=== PATIENT | female | born 1995 | race Caucasian/White ===

== ENCOUNTER 2017-06-14 19:06 | Emergency (ER) | payer MEDICAID ==
[~2017-06-14] VITALS: Ht 162.6 cm; Wt 63.5 kg
[~2017-06-14 19:06] MED LIST: ACETAMINOPHEN500 M3 PO; EPI-PEN1 MG/M1 MR; GEODON40 MG PO; QUETIAPINE FUM100 MG PO; RISPERDAL 0.50.5 MG NG; SERTRALINE25 MG PO; ZOLOFT 50MG TAB50 MG PO; Zofran4 MG PO
[2017-06-14 19:44] LABS: URINE BILIRUBIN - DIPSTICK NEGATIVE (NEG); URINE BLOOD 3+ (NEG)
[2017-06-14 19:55] LABS: URINE SQUAMOUS CELLS OCC #/hpf (0-5)
[2017-06-14 20:22] LABS: HEMOGLOBIN 13.3 g/dL (12.2-16.2); LYMPH # 2.5 K/mm3 (0.7-4.5); LYMPH % 27.5 % (10-50.0)
[2017-06-14 20:36] LABS: BUN 15 mg/dL (7-18); GFR (ESTIMATED) 104 ML/MIN (59-)
--- NOTE | 2017-06-14 22:13 | Emergency Room Report ---
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 Y Clinical Suspician of Infection? N Mental Status: 1 - Regular (Normal Baseline) Sepsis Risk:Possible Sepsis Risk Have you (or family members/close friends) recently traveled outside the [place]? N If Yes, where/when: Have you had exposure to infectious disease within the past month? N TB? Other? Specify: Source patient, RN notes reviewed, family, old records Exam Limitations no limitations Comment pt with fever with vomiting and episode of incont but no other c/o this has been occuring today Cardiac Chest Pain Chest pain indicative of cardiac No Timing/Duration this evening Severity moderate ALLERGIES Coded Allergies: Penicillins (05/03/17) codeine (06/14/17) fish oil (05/03/17) Home Medications Reported Medications Acetaminophen (Acetaminophen Extra Strength) 500 MG PO Q6HP PRN PAIN/FEVER Epinephrine (Epipen 2-Shahab) 1 MG MR PRN PRN ALLERGY Ondansetron (Zofran Odt) 4 MG PO Q6HP PRN N/V Sertraline Hcl (Zoloft 50MG) 25 MG PO QHS ZIPRASIDONE HCL (Geodon) 40 MG PO BID History Medical History General CAD? No Angina: No [place]: No Hypertension? No Hyperlipidemia? No CHF? No DVT? No PE? No COPD? No Asthma? No Anemia? No GERD? Yes Gastric ulcers? No GI Bleed? No Hernia? No Thyroid Problems? No Hypothyroidism? No CVA? No Seizures? No Diabetes? No Renal Insuffiency? No End Stage Renal Disease? No UTI? Yes Stones? No BPH? No GB Disease: No Nephritic Syndrome? No Asplenia? No Hepatitis? No Sickle Cell Disease? No Arthritis? No Migraines? No Cataracts? No Glaucoma? No MRSA? No HIV? No TB? No Anxiety? Yes Depression? Yes Cancer? No More? Yes Additional hx: PREVIOUS METH USER Immunization Hx DT/Tetanus Unknown Surgical Hx Previous Surgery?Y APPY RIGHT SHOULDER SHOT BLASTER Hx LMP 2 Months Ago Social History Smoking Hx Smoker: Current Every Day Smoker Tobacco: Yes Type Cigarettes Alcohol Alcohol: No Drugs none Review of Systems All Other Systems Reviewed and Negative Constitutional denies fever Eyes denies drainage ENT denies: ear pain, epistaxis, throat pain. Respiratory denies cough, denies shortness of breath, denies wheezing Cardiovascular denies chest pain, denies palpitations, denies syncope Gastrointestinal see HPI, denies abdominal pain, denies diarrhea, nausea, vomiting Genitourinary denies: dysuria, frequency, hesitancy, hematuria. Musculoskeletal denies back pain, denies joint pain, denies joint swelling, denies neck pain Skin denies rash Psychiatric/Neurological denies headache, denies seizure Physical Exam Vital Signs Vital Signs Date Time Temp Pulse Resp B/P Pulse O2 O2 Flow FiO2 Ox Delivery Rate 06/14 1908 98.6 94 20 128/75 96 - WBC >12,000 or <4,000 or 10% bands? 2 or more SIRS Criteria Met? B/P:128/75 MAP:92 Creatinine >2.0? UA output<0.5ml/kg/hr for 2 hrs? Platelet count >100,000? Lactate >2.0mmol/1? INR >1.2 or PTT > than 60 sec? Evidence of Organ Dysfunction? Provider documented clinical suspician of infection? N Sepsis Criteria Count: 2 Sepsis Risk: Possible Sepsis Risk General Appearance no apparent distress Eye Exam - bilateral eye PERRL, bilateral eye EOMI Ear, Nose, Throat normal ENT inspection Neck supple Respiratory Status No: respiratory distress. Lung Sounds bilateral: lungs clear. 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 No Results/Orders Laboratory Tests 06/14/17 2000: Lactic Acid 1.1 06/14/17 2000: Sodium 141, Potassium 3.7, Chloride 105, Carbon Dioxide 26, BUN 15, Creatinine 0.7, Estimated Creat Clear 125, Estimated GFR (MDRD) 104, Glucose 97, Calcium 8.9, Total Bilirubin 0.2, AST 14 L, ALT 19, Alkaline Phosphatase 59, Total Protein 8.2, Albumin 4.1, Globulin 4.1 H, Albumin/Globulin Ratio 1.0 L, Beta HCG, Quant < 1, WBC 9.0, RBC 4.79, Hgb 13.3, Hct 40.7, MCV 85.1, RDW 14.4, Plt Count 378, MPV 7.0 L, Gran % 65.8, Gran # 5.9, Lymphocytes % 27.5, Monocytes % 5.5, Eosinophils % 0.8, Basophils % 0.3, Lymphocytes # 2.5, Monocytes # 0.5, Eosinophils # 0.1, Basophils # 0.0, PUBS MCHC 32.7, MCH 27.9 06/14/171919: Urine Color YELLOW, Urine Appearance SL CLOUDY, Urine pH 6.0, Ur Specific Addison >= 1.030, Urine Protein TRACE H, Urine Ketones NEGATIVE, Urine Blood 3+ H, Urine Nitrate NEGATIVE, Urine Bilirubin NEGATIVE, Urine Urobilinogen 0.2, Ur Leukocyte Esterase NEGATIVE, Urine RBC 10-20, Urine WBC NONE, Ur Squamous Epith Cells OCC, Urine Bacteria 1+, Urine Glucose NEGATIVE Current Medication Orders Sig/Carly Start time Last Medication Dose Route Stop Time Status Admin Sodium Chloride 1,000 ML .STK-MED ONE 06/14 1947 DC IV Ondansetron HCl 4 MG 06/14 1930 UNi 06/14 IV 1958 Sodium Chloride 10 ML PRN PRN 06/14 1930 AC IV 06/15 1922 Sodium Chloride 1,000 ML .Q1H1M 06/14 1930 DC 06/14 IV 06/14 Sodium Chloride 10 ML PRN PRN 06/14 1930 AC IV 06/15 1922 Orders Procedure Date/time Status IV SALINE LOCK 06/14 1923 Active CULTURE, BLOOD 06/14 1923 Active URINALYSIS/COMPLETE 06/14 1923 Complete LACTIC ACID 06/14 1923 Complete CBC WITH AUTO DIFF 06/14 1923 Complete CHEM 12 PROFILE 06/14 1923 Complete BETA-HCG, QUANT 06/14 1923 Complete Departure Departure Time of Disposition 2212 Disposition DC Home or Self Care(routine) Clinical Impression Primary Impression: Acute viral syndrome Condition STABLE Referrals DEVORAH VAUGHN (Family) Patient Instructions DI for Vomiting -- Adult Additional Instructions see pcp and fluids as tolerated Discharge Counseling Counseled pt/family regarding diagnosis, test results, follow up needs ED Critical Care Critical Care No at [id number]
[2017-06-14 22:29] VITALS: BP 115/90
== END 2017-06-14 22:32 | disposition home or self-care (01) ==
LOC: ER 19:06
PROVIDERS: Emergency Medicine
DX: B34.9 Viral infection, unspecified (principal); K21.9 Gastro-esophageal reflux disease without esophagitis; Z72.0 Tobacco use; F41.8 Other specified anxiety disorders
CPT/HCPCS: J2405

== ENCOUNTER 2017-07-16 11:58 | Emergency (ER) | payer MEDICAID ==
[~2017-07-16] VITALS: Ht 162.6 cm; Wt 66.7 kg
--- NOTE | 2017-07-16 12:35 | Emergency Room Report ---
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 N Clinical Suspician of Infection? N Mental Status: 1 - Regular (Normal Baseline) Sepsis Risk:Low Sepsis Risk Have you (or family members/close friends) recently traveled outside the [place]? N If Yes, where/when: Have you had exposure to infectious disease within the past month? TB? Other? Specify: Comment The patient is brought in by ambulance. She fell and injured her RIGHT foot and ankle. She complains of lateral malleolus area pain and pain across the dorsum of her mid foot. No other injuries. She took Tylenol prior to arrival. ALLERGIES Coded Allergies: Penicillins (07/16/17) codeine (07/16/17) fish oil (07/16/17) Home Medications Reported Medications Acetaminophen (Acetaminophen Extra Strength) 500 MG PO Q6HP PRN PAIN/FEVER Epinephrine (Epipen 2-Shahab) 1 MG MR PRN PRN ALLERGY Ondansetron (Zofran Odt) 4 MG PO Q6HP PRN N/V Sertraline Hcl (Zoloft 50MG) 25 MG PO QHS ZIPRASIDONE HCL (Geodon) 40 MG PO BID History Medical History General CAD? No Angina: No [place]: No Hypertension? No Hyperlipidemia? No CHF? No DVT? No PE? No COPD? No Asthma? No Anemia? No GERD? Yes Gastric ulcers? No GI Bleed? No Hernia? No Thyroid Problems? No Hypothyroidism? No CVA? No Seizures? No Diabetes? No Renal Insuffiency? No End Stage Renal Disease? No UTI? Yes Stones? No BPH? No GB Disease: No Nephritic Syndrome? No Asplenia? No Hepatitis? No Sickle Cell Disease? No Arthritis? No Migraines? No Cataracts? No Glaucoma? No MRSA? No HIV? No TB? No Anxiety? Yes Depression? Yes Cancer? No More? 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 Cardiovascular regular rate/rhythm, normal peripheral pulses Extremities tenderness across the dorsum of the mid foot and around the lateral malleolus of her RIGHT foot and ankle. No edema or ecchymosis. Skin intact. No deformity. Neurovascular intact. Neurologic alert, no motor/sensory deficits Medical Decision Making LABS/Meds/Orders Pt receiving controlled substance in ED? No Results/Orders Orders Procedure Date/time Status STABILIZE JOINT 07/16 1308 Active XRAY/CT/US XRAY/CT/US XRAY ankle, foot Comment Foot X-ray interpreted by Andrea Pimentel MD. Negative for fracture, dislocation , or foreign body. Ankle X-ray interpreted by Andrea Pimentel MD. Negative for fracture, dislocation, or foreign body. Departure Departure Disposition DC Home or Self Care(routine) Clinical Impression Primary Impression: Right foot sprain Qualifiers: Encounter type: initial encounter Qualified Code: S93.601A - Unspecified sprain of right foot, initial encounter Secondary Impressions: Right ankle sprain Qualifiers: Encounter type: initial encounter Involved ligament of ankle: unspecified ligament Qualified Code: S93.401A - Sprain of unspecified ligament of right ankle, initial encounter Condition STABLE Referrals Kelly ZAPIEN,Adryan Richard (Family) Patient Instructions DI for Ankle Sprain, DI for Foot Sprain, How To Perform RICE (Rest, Ice, Compress, Elevate), How to Use Crutches Additional Instructions Use crutches for 4-5 days. Ice 20 minutes 4-5 times a day and elevate ankle for 2 days. Use air cast for 2 weeks. Ibuprofen for pain. ED Critical Care Critical Care No at [id number]
--- NOTE | 2017-07-16 13:10 | RADIOLOGY REPORT PS360 ---
FOOT-RT-3 VIEWS HISTORY: Pain following injury FALL WITH PAIN ORDERING PHYSICIAN: Andrea Pimentel MD PATIENT AGE: 22 years COMPARISON: None FINDINGS: No fracture or dislocation. No lytic or blastic change. There is normal mineralization.. The joint spaces are well-preserved. No significant degenerative/arthritic changes. No erosive changes evident. IMPRESSION: Negative, no acute finding
[2017-07-16 13:57] VITALS: BP 133/79
== END 2017-07-16 13:58 | disposition home or self-care (01) ==
LOC: ER 11:58
PROC: 2W3QX1Z Immobilization of Right Lower Leg using Splint (ICD-10-PCS; principal; 2017-07-16)
DX: S93.601A Unspecified sprain of right foot, initial encounter (principal); S93.401A Sprain of unspecified ligament of right ankle, initial encounter; Z88.0 Allergy status to penicillin; Z88.6 Allergy status to analgesic agent; K21.9 Gastro-esophageal reflux disease without esophagitis; F17.210 Nicotine dependence, cigarettes, uncomplicated; W01.0XXA Fall on same level from slipping, tripping and stumbling without subsequent striking against object, initial encounter; Y92.199 Unspecified place in other specified residential institution as the place of occurrence of the external cause